=== PATIENT | female | born 1965 | race Caucasian/White ===

== ENCOUNTER 2023-07-30 07:13 | Emergency (ER) | payer OTHER, SELFPAY ==
[2023-07-30 07:15] VITALS: BP 154/88
--- NOTE | 2023-07-30 07:31 | ED.GENMED ---
History of Present Illness
General
Chief Complaint: Headache
Time Seen by Provider: 07/30/23 07:30
Travel History
Have you had any contact with someone who has COVID-19?: No
Do you have any symptoms of coronavirus? Fever > 100 degrees, chills, cough, shortness of breath, sore throat, loss of taste or smell, muscle aches, or headache?: No
History of Present Illness
History of Present Illness:
HPI: Patient presents with a headache onset 2 days ago. It was gradual onset and progression. It was not described as severe initially. She does not normally get headaches. She has not had any photophobia and she has no nausea. She does not
have history of migraine type of headache. Primary care provider recommended avoidance of sugar due to diagnosis of diabetes; she could not tolerate metformin due to diarrhea.
EXAM:
GENERAL: Well appearing in no distress
HEENT: Moist oral mucosa
CARDIOVASCULAR: No murmurs, normal heart rate and rhythm, No chest wall tenderness
PULMONARY: No respiratory distress, breath sounds are clear and equal
ABDOMEN: Soft with no peritoneal signs, no tenderness
NEUROLOGIC: Excellent strength all extremities, no coordination deficits, normal finger-nose testing, no sensory deficits
PSYCHIATRIC: Appropriate mental status, normal insight and judgement
EXTREMITIES: Nontender, no edema, moves all extremities equally
SKIN: No rash, no lesions
ED COURSE:
7:30 AM: I initially evaluated patient
NUMBER AND COMPLEXITY OF PROBLEMS ADDRESSED AT THE ENCOUNTER
� Chronic conditions affecting care: Diabetes, thyroid disease
� Acute Exacerbation and/or Progression of Chronic Illness: This is an acute problem
� Differential Diagnosis includes: Tension type headache, viral syndrome, intracranial mass/hemorrhage unlikely, temporal arteritis unlikely given location of symptoms, migraine headache unlikely given the lack of photophobia and
nausea
AMOUNT AND/OR COMPLEXITY OF DATA TO BE REVIEWED AND ANALYZED
� I performed an independent evaluation of and my interpretation is:
EKG:
CT: Brain CT negative/I personally reviewed
X-rays:
Laboratory Studies: CBC unremarkable, glucose 187, CRP 12.4, COVID-negative, flu negative
Other:
� Review of other/old records: I reviewed old records and the patient has not had neuroimaging in the past
� Clinical information was obtained by an independent historian: I spoke to the at bedside
� Prescriptions/Medications Considered but not given: Considered starting glipizide however the patient's blood sugars are not terribly high I recommend PMD follow-up
� Further testing considered but not performed:
RISK OF COMPLICATIONS AND/OR MORBIDITY OR MORTALITY OF PATIENT MANAGEMENT
� Social determinants of health affecting care: Lives at home
� Discussion with other providers:
� Escalation of care including admission/observation vs risk of discharge considered: CT imaging negative basic labs relatively unremarkable with exception of hyperglycemia. Minimal elevation of C-reactive protein but highly
doubt giant cell arteritis. Favor more of a tension type of headache as most of her pain is in the occipital region. The patient will receive diabetic teaching specifically how to use a glucometer. Workup is relatively unremarkable. She states
she limits her glucose to 20 g/day. Will add Tylenol.
Past History
Past History
ED Past Medical History: Other (Lucila's)
ED Past Surgical History: Gynecological
Social History
Tobacco: Non-smoker
Alcohol: Occasional
Drug: None
Personal:
Living: with family
Family History
Family History: Negative Diabetes, Hypertension or CAD
Phy Exam
Physical Exam
Physical Exam:
See HPI
Course
Orders/Labs/Results
Orders:
Orders
07/30/23 07:38
0.9% Sodium Chloride 1000 ml [Nss] 1,000 ml IV BOLUS
07/30/23 07:39
CT Head W/o Iv Contrast Urgent
Comment:
Reason For Exam: new ABREU 2d
Ketorolac [Toradol] 15 mg IV NOW STA
07/30/23 08:07
Basic Metabolic Panel Urgent
COVID-19 Antigen Urgent
Source: Nasal Swab
CRP [C-Reactive Protein] Urgent
Complete Blood Count/With Diff Urgent
Hemoglobin A1c [Glycohemoglobin (HgbA1c)] Urgent
Influenza A+B Rapid Molecular Urgent
PRAVEEN Source: Nasal Swab
Specimen Description:
07/30/23 09:05
Bedside Glucose- Treatment ONCE
Acetaminophen [Tylenol] 1,000 mg PO NOW STA
Abnormal Lab Results
07/30/23
08:07
MPV 10.6 H fL
(7.4-10.4)
BUN 20 H mg/dl
(7-17)
Glucose 187 H mg/dl
(70-99)
C-Reactive Protein 12.40 H mg/L
(0.0-10.00)
07/30/23 08:07
07/30/23 08:07
Vital Signs
Initial and Last Documented VS:
Initial Vital Signs
Temp Pulse Resp BP Pulse Ox
98.3 F 82 18 154/88 98
07/30/23 07:15 07/30/23 07:15 07/30/23 07:15 07/30/23 07:15 07/30/23 07:15
Last Documented Vital Signs
Temp Pulse Resp BP Pulse Ox
98.3 F 82 18 154/88 98
07/30/23 07:15 07/30/23 07:15 07/30/23 07:15 07/30/23 07:15 07/30/23 07:15
*Critical Care Note
Total Time (30-74mins, 75-104mins- exclusive of procedures): Not Applicable
ED Attending Note
-
Portions of this chart may have been created with voice recognition software.� Occasional wrong word or��sound alike� substitutions may have occurred due to the inherent limitations of voice recognition software.
Discharge Plan
Departure
Patient Disposition: Home (Routine Discharge)
Date of Disposition: 07/30/23
Time of Disposition: 09:06
Patient with high blood pressure during this ER visit?: Yes
Discharge Problem:
Headache
Instructions: Headache, Adult (DC), BLOOD PRESSURE
Prescriptions:
No Action
selenium 200 MCG tablet
200 mcg PO HS
omega 9-qff-gon-fish oil 1 EACH capsule
2 ea PO HS
multivitamin with folic acid [Tab-A-[place]] 1 TABLET tablet
1 tab PO HS
Cholecalciferol (Vitamin D3)
1 tab PO HS
[place] Thyroid
1.5 unit PO DAILY
[place] Thyroid
0.75 unit PO HS
prednisone 20 MG tablet
20 mg PO BID Qty: 10 0RF
oxycodone 5 MG tablet
5 mg PO Q4HPRN PRN (Reason: pain) Qty: 20 0RF
promethazine-codeine 5 ML syrup
5 ml PO Q4HPRN PRN (Reason: cough) Qty: 120 0RF
albuterol sulfate 90 mcg/actuation HFA aerosol inhaler
2 puff inhalation QID PRN (Reason: shortness of breath or wheezing) Qty: 8.5 0RF
Referrals:
NONE,* [Family Provider] -
Activity Restrictions/Additional Instructions:
Please check your blood sugars at home. Your glucose level today is 187. The CAT scan of the brain showed no acute abnormality, other basic labs were normal. C-reactive protein was minimally elevated but does not mean anything serious. Flu and
COVID testing are both negative. Follow-up primary care doctor. You can take 3-4 [id number] ibuprofen 3 times a day for the next few days with food and you can also take 2 extra strength Tylenol 4 times a day to help the headache. Return
here if worse.
Interventions
Interventions:
*Risk Screen - Suicide Last Done: 07/30/23 07:54
*General Assessment Last Done: 07/30/23 07:54
*Neglect/Abuse Screening Last Done: 07/30/23 07:54
ED- Fall Risk Assessment Last Done: 07/30/23 07:54
*ED COVID-19 Vaccine History Last Done: 07/30/23 07:16
ED- Neurological Assessment Last Done: 07/30/23 07:54
[2023-07-30] MEDS: NSS 1000 IV (08:04)
[2023-07-30] MEDS: TORADOL 15 MG IV (08:04)
[2023-07-30 08:24] LABS: % Basophils 0.8 % (0-2); % Eosinophils 0.8 % (0-6); % Immature Granulocytes 0.3 % (0-0.5); % Lymphocytes 31.9 % (20.5-51.1); % Monocytes 4.7 % (1.7-9.3); % Neutrophils 61.5 % (42.2-75.2); Absolute Basophils 0.1 10^3/uL (0-0.2); Absolute Eosinophils 0.1 10^3/uL (0-0.7); Absolute Lymphocytes 2.5 10^3/uL (1.2-3.4); Absolute Monocytes 0.4 10^3/uL (0.1-0.6); Absolute Neutrophils 4.9 10^3/uL (1.4-6.5); Hemoglobin 13.5 g/dL (12.0-16.0); Mean Corp Hgb Conc. 34.6 g/dL (33.0-37.0); Mean Corpuscular Volume 86.7 fL (81.0-99.0); Mean Platelet Volume 10.6 fL (7.4-10.4); Nucleated Red Blood Cells % 0 %; Platelet Count 302 10^3/uL (130-400); Red Cell Dist. Width 13.3 % (11.5-14.5); White Blood Cell Count 7.9 10^3/uL (4.8-10.8)
[2023-07-30 08:33] LABS: Blood Urea Nitrogen 20 mg/dl (7-17); Calcium 9.5 mg/dl (8.4-10.2); Carbon Dioxide 22 mmol/L (22-30); Chloride 107 mmol/L (98-107); Glucose 187 mg/dl (70-99); Potassium 4.2 mmol/L (3.5-5.1); Sodium 137 mmol/L (135-145); eGFR > 60.00
[2023-07-30 08:46] LABS: COVID-19 Antigen Negative (Negative)
[2023-07-30] MEDS: TYLENOL 1000 MG PO (09:20)
[2023-07-30 09:33] LABS: Glucose - Point of Care 145 mg/dl (70-99)
[2023-07-30 09:34] LABS: Glycohemoglobin (HgbA1c) 7.4 % (4.0-5.6)
[2023-07-30 10:13] VITALS: BP 132/81
== END 2023-07-30 10:16 | disposition home or self-care (01) ==
LOC: EMR 07:13
PROVIDERS: EMERGENCY PHYSICIAN Emergency Medicine
DX: R51.9 Headache, unspecified (principal); R03.0 Elevated blood-pressure reading, without diagnosis of hypertension
CPT/HCPCS: 99284; 96374; 96361; 70450; 80048; 82962; 83036; 85025; 86140; 87502; 87811

== ENCOUNTER 2024-11-08 12:55 | Emergency (ER) | payer OTHER, SELFPAY ==
[2024-11-08 12:58] VITALS: BP 158/103
[2024-11-08 15:26] VITALS: BP 129/76; BMI 34.8
[2024-11-08 15:37] LABS: % Basophils 0.5 % (0-2); % Eosinophils 0.5 % (0-6); % Immature Granulocytes 0.2 % (0-0.5); % Lymphocytes 32.8 % (20.5-51.1); % Monocytes 5.5 % (1.7-9.3); % Neutrophils 60.5 % (42.2-75.2); Absolute Basophils 0.1 10^3/uL (0-0.2); Absolute Eosinophils 0.1 10^3/uL (0-0.7); Absolute Lymphocytes 3.5 10^3/uL (1.2-3.4); Absolute Monocytes 0.6 10^3/uL (0.1-0.6); Absolute Neutrophils 6.4 10^3/uL (1.4-6.5); Hematocrit 43.1 % (37.0-47.0); Hemoglobin 14.8 g/dL (12.0-16.0); Mean Corp Hgb Conc. 34.3 g/dL (33.0-37.0); Mean Corpuscular Hgb 29.7 pg (27.0-31.0); Mean Corpuscular Volume 86.4 fL (81.0-99.0); Mean Platelet Volume 10.5 fL (7.4-10.4); Nucleated Red Blood Cells % 0 %; Platelet Count 290 10^3/uL (130-400); Red Blood Cell Count 4.99 10^6/uL (4.20-5.40); Red Cell Dist. Width 13.2 % (11.5-14.5); White Blood Cell Count 10.5 10^3/uL (4.8-10.8)
--- NOTE | 2024-11-08 15:39 | ED.GENMED ---
History of Present Illness
General
Chief Complaint: Eye Problems
Source: patient
Exam Limitations: none
Time Seen by Provider: 11/08/24 15:19
History of Present Illness
History of Present Illness:
59-year-old female with history of hyperthyroidism as well as diet-controlled diabetes presents with likely 2 to 3 weeks worth of double vision. The double vision is made worse when she looks to the left. It goes away when she covers either eye or
look straight ahead or to the right. No associated significant headache paresthesias weakness or numbness to the arms or legs. No difficulty speaking. She is seen by ophthalmology and sent here for further imaging. No fevers. No chest pain or
shortness of breath. No neck pain. No other
Past History
Past History
ED Past Medical History: Other (Lucila's)
ED Past Surgical History: Gynecological
Social History
Tobacco: Non-smoker
Alcohol: Occasional
Drug: None
Personal:
Living: with family
Family History
Family History: Negative Diabetes, Hypertension or CAD
Phy Exam
Physical Exam
Physical Exam:
General: Well-appearing female no acute respiratory distress
HEENT: Normocephalic atraumatic
Heart: Regular rate and rhythm.
Lungs: Clear no wheeze neurologic exam: Pupils equal round reactive to light extract motions are intact
. Finger-nose is intact however patient does describe double vision when looking to the left my finger on her left side. [id number]-rz-[id number] intact. Gait is normal no drift
Extremities: No cyanosis
Skin is warm no rash
Course
Orders/Labs/Results
Orders:
Orders
11/08/24 15:24
C-Reactive Protein Urgent
Comment: ADD ON
Complete Blood Count/With Diff Urgent
Comprehensive Metabolic Panel Urgent
Erythrocyte Sed Rate Urgent
Comment: ADD ON
Free T4 Urgent
Comment: ADD ON
TSH Urgent
Comment: ADD ON
11/08/24 15:57
CT Head & Neck Angio W/wo IV Urgent
Comment:
Reason For Exam: double vision
11/08/24 16:34
Add On- LAB Urgent
Tests Added?: CRP, ESR, T4 Free, TSH
Abnormal Lab Results
11/08/24
15:24
MPV 10.5 H fL
(7.4-10.4)
Absolute Lymphs (auto) 3.5 H 10^3/uL
(1.2-3.4)
BUN 20 H mg/dl
(7-17)
Glucose 252 H mg/dl
(70-99)
ALT 37 H U/L
(0-35)
Free T4 0.71 L ng/dl
(0.78-2.19)
11/08/24 15:24
11/08/24 15:24
Vital Signs
Initial and Last Documented VS:
Initial Vital Signs
Temp Pulse Resp BP Pulse Ox
98.5 F 105 16 158/103 99
11/08/24 12:58 11/08/24 12:58 11/08/24 12:58 11/08/24 12:58 11/08/24 12:58
Last Documented Vital Signs
Temp Pulse Resp BP Pulse Ox
98.5 F 60 22 121/76 99
11/08/24 12:58 11/08/24 18:00 11/08/24 18:00 11/08/24 18:00 11/08/24 18:00
MDM/Problems Addressed
Differential Diagnosis Includes:
Patient with diplopia out of both eyes only present when she looks to the left. She describes objects that are next to each other. No other neurologic deficit on exam. Will check labs. Will order imaging as well
*Critical Care Note
Total Time (30-74mins, 75-104mins- exclusive of procedures): Not Applicable
Update Note
Update Note:
CT angio of the head and neck were all negative. Serum glucose was slightly elevated at 252. Discussed findings emergency room attending as well is neurology. No indication for admission to hospital with ongoing diplopia. Recommend follow-up
with her doctor. Patient agreeable to discharge
ED Attending Note
-
Portions of this chart may have been created with voice recognition software.� Occasional wrong word or��sound alike� substitutions may have occurred due to the inherent limitations of voice recognition software.
Discharge Plan
Departure
Patient Disposition: Home (Routine Discharge)
Date of Disposition: 11/08/24
Time of Disposition: 19:29
Patient with high blood pressure during this ER visit?: No
Discharge Problem:
Diplopia
Instructions: Double Vision
Prescriptions:
No Action
selenium 200 MCG tablet
200 mcg PO HS
omega 9-mxs-wds-fish oil 1 EACH capsule
2 ea PO HS
multivitamin with folic acid [Tab-A-[place]] 1 TABLET tablet
1 tab PO HS
Cholecalciferol (Vitamin D3)
1 tab PO HS
[place] Thyroid
1.5 unit PO DAILY
[place] Thyroid
0.75 unit PO HS
prednisone 20 MG tablet
20 mg PO BID Qty: 10 0RF
oxycodone 5 MG tablet
5 mg PO Q4HPRN PRN (Reason: pain) Qty: 20 0RF
promethazine-codeine 5 ML syrup
5 ml PO Q4HPRN PRN (Reason: cough) Qty: 120 0RF
albuterol sulfate 90 mcg/actuation HFA aerosol inhaler
2 puff inhalation QID PRN (Reason: shortness of breath or wheezing) Qty: 8.5 0RF
Referrals:
Lalo Ventura, DO [Family Provider, Family Practice]
Activity Restrictions/Additional Instructions:
Please return here for worsening symptoms otherwise follow-up with your doctor
Interventions
Interventions:
*Risk Screen - Suicide Last Done: 11/08/24 12:58
*General Assessment Last Done: 11/08/24 12:58
*Neglect/Abuse Screening Last Done: 11/08/24 12:58
*ED- Fall Risk Assessment Last Done: 11/08/24 14:32
*ED COVID-19 Vaccine History Last Done: 11/08/24 14:32
Discharge Date and Time
Print Language: ARMENIAN
[2024-11-08 15:59] LABS: ALT (SGPT) 37 U/L (0-35); AST (SGOT) 26 U/L (14-36); Albumin 4.6 g/dl (3.5-5.0); Alkaline Phosphatase 72 U/L (38-126); Blood Urea Nitrogen 20 mg/dl (7-17); Calcium 9.6 mg/dl (8.4-10.2); Carbon Dioxide 24 mmol/L (22-30); Chloride 106 mmol/L (98-107); Estimated Creatinine Clearance 103 ml/min; Glucose 252 mg/dl (70-99); Potassium 4.5 mmol/L (3.5-5.1); Sodium 139 mmol/L (135-145); Total Bilirubin 0.5 mg/dl (0.2-1.3); Total Protein 7.6 g/dl (6.3-8.2); eGFR > 60.00
[2024-11-08 16:58] LABS: Erythrocyte Sed Rate 9 mm/hour (0-20)
[2024-11-08 17:40] LABS: Free T4 0.71 ng/dl (0.78-2.19)
[2024-11-08 17:54] LABS: TSH 0.92 uIU/ml (0.47-4.68)
[2024-11-08 18:00] VITALS: BP 121/76
== END 2024-11-08 19:58 | disposition home or self-care (01) ==
LOC: EMR 12:55
PROVIDERS: EMERGENCY PHYSICIAN Emergency Medicine; FAMILY PHYSICIAN Family Medicine
DX: H53.2 Diplopia (principal); E05.90 Thyrotoxicosis, unspecified without thyrotoxic crisis or storm; E11.9 Type 2 diabetes mellitus without complications; E06.3 Autoimmune thyroiditis; Z91.011 Allergy to milk products; Z91.018 Allergy to other foods
CPT/HCPCS: 99284; 70496; 70498; 80053; 84439; 84443; 85025; 85652; 86140; Q9967